=== PATIENT | male | born 1950 | race Caucasian/White ===

== ENCOUNTER 2024-04-13 01:59 | Emergency (ER) | payer MEDICAID, OTHER ==
[2024-04-13 02:20] LABS: BASOPHILS PERCENT AUTO 0.3 % (0.0-1.0); EOSINOPHILS PERCENT AUTO 3.6 % (1.0-3.0); HEMATOCRIT 48.4 % (40.0-54.0); HEMOGLOBIN 15.6 g/dL (14.0-18.0); LYMPHOCYTES PERCENT AUTO 21.5 % (20.5-50.1); MEAN CORPUSCULAR HEMOGLOBIN 29.4 pg (27.0-34.0); MEAN CORPUSCULAR HGB CONC 32.2 g/dL (33.0-35.0); MEAN CORPUSCULAR VOLUME 91.3 fL (80-100); MONOCYTES PERCENT AUTO 8.5 % (2-8); NEUTROPHILS PERCENT AUTO 66.1 % (42.2-75.2); PLATELET COUNT,PLT 209 10^3/uL (150-450); WHITE BLOOD CELL COUNT,WBC 6.9 10^3/uL (5.0-10.0)
[2024-04-13] MEDS: Sodium Chloride 0.9% 1,000 ML IV ONE (02:37)
[2024-04-13 02:44] LABS: A/G RATIO 1.2; ALBUMIN 4.1 g/dL (3.4-5.0); BUN/CREATININE RATIO 15.6 (No establ ref range); CREATININE 1.47 mg/dL (0.70-1.30); EST CRCL DRUG DOSING (CG) 46.24 mL/min; PROTEIN TOTAL,TP 7.4 g/dL (6.4-8.2)
[2024-04-13] MEDS: Iopamidol 612 MG/ML 100 ML Bottle IVPUSH ONE (02:48)
[2024-04-13 02:58] LABS: INR 1.1 (0.9-1.2); PROTHROMBIN TIME 10.9 SEC (9.0-12.0); PTT,PARTIAL THROMBOPLSTIN TIME 23.5 SEC (22.0-34.0)
[2024-04-13] MEDS: Take Home: Acetaminophen/HYDROcodone 325-5 MG, 5 Tab Pack PO ONE (03:20)
[2024-04-13 03:32] LABS: APPEARANCE,URINE CLEAR (CLEAR); BILIRUBIN,URINE NEGATIVE (NEGATIVE); COLOR,URINE YELLOW (YELLOW); GLUCOSE,URINE NEGATIVE (NEGATIVE); KETONES,URINE 15 (NEGATIVE); LEUKOCYTE ESTERASE,URINE NEGATIVE (NEGATIVE); NITRITE,URINE NEGATIVE (NEGATIVE); OCCULT BLOOD,URINE SMALL (NEGATIVE); PROTEIN,URINE 30 (NEGATIVE); UROBILINOGEN,URINE 0.2 mg/dL (0.2-1.0)
[2024-04-13 03:46] LABS: BACTERIA,URINE MODERATE /HPF (0-FEW/HPF); EPITHELIAL CELLS,URINE FEW /HPF (NOT SEEN); HYALINE CASTS,URINE RARE; MUCUS,URINE FEW /LPF (NOT SEEN)
== END 2024-04-13 03:19 | disposition home or self-care (01) ==
LOC: EDBD → DL.ED 01:59 → MERGE 01:59 → DL.ED 03:19
DX: S22.41XA Multiple fractures of ribs, right side, initial encounter for closed fracture (principal); S80.211A Abrasion, right knee, initial encounter; V49.49XA Driver injured in collision with other motor vehicles in traffic accident, initial encounter; Y93.89 Activity, other specified
CPT/HCPCS: 36415; 70450; 71260; 72125; 72128; 74177; 80053; 81001; 83690; 84484; 85025; 85610; 85730; 93005; 99285; A9270; J7030; Q9967; 93010; 99284